=== PATIENT | female | born 1945 | race Caucasian/White ===

== ENCOUNTER 2017-08-15 08:59 | Emergency (ER) | payer OTHER, SELFPAY ==
[~2017-08-15] VITALS: Ht 167.6 cm; Wt 60.0 kg
[2017-08-15] MEDS ORDERED: SODIUM CHLORIDE 0.9% 1,000ML IVBOLUS ONE (10:30)
[2017-08-15] MEDS ORDERED: PROMETHAZINE 25 MG/ML, 1ML IM ONE (10:30)
[2017-08-15] MEDS ORDERED: SODIUM CHLORIDE FLUSH 10ML SYR IVF ONE (10:30)
[2017-08-15] MEDS ORDERED: MORPHINE SULFATE 4 MG/ML, 1ML IVPush PRN (10:30)
[2017-08-15 10:48] LABS: MEAN CORPUSCULAR HEMOGLOBIN 31.7 pg (27.0-34.8); MEAN CORPUSCULAR HGB CONC 33.7 g/dL (32.4-35.8); MEAN CORPUSCULAR VOLUME 94.2 fL (80-100); MEAN PLATELET VOLUME 8.8 fL (7.4-10.4); PLATELET COUNT 368 x10^3/uL (130-400); RED BLOOD COUNT 5.19 x10^6/uL (3.82-5.3)
[2017-08-15] MEDS ORDERED: PROMETHAZINE 25 MG/ML, 1ML ONE (10:49)
[2017-08-15] MEDS ORDERED: MORPHINE SULFATE 4 MG/ML, 1ML ONE (10:50)
[2017-08-15 11:03] LABS: BASOPHILS # (AUTO) 0.03 x10^3/uL (0-0.1); BASOPHILS % (AUTO) 0 % (0-1); EOSINOPHILS # (AUTO) 0.01 x10^3/uL (0-0.4); EOSINOPHILS % (AUTO) 0 % (1-7); LYMPHOCYTES # (AUTO) 1.26 x10^3/uL (1-3.4); LYMPHOCYTES % (AUTO) 8 % (22-44); MD SCAN; MONOCYTES # (AUTO) 0.95 x10^3/uL (0.2-0.8); MONOCYTES % (AUTO) 6 % (2-9); NEUTROPHILS % (AUTO) 86 % (42-75)
[2017-08-15 11:12] LABS: ALANINE AMINOTRANSFERASE 27 U/L (12-78); ALBUMIN 3.2 g/dL (3.4-5.0); ANION GAP 10 mmol/L (5-15); CALCIUM 9.2 mg/dL (8.5-10.1); CHLORIDE 103 mmol/L (98-107); CREATININE 1.12 mg/dL (0.55-1.02)
[2017-08-15 11:14] LABS: ALKALINE PHOSPHATASE 86 U/L (45-117); BILIRUBIN,TOTAL 0.8 mg/dL (0.2-1.0); TOTAL PROTEIN 6.6 g/dL (6.4-8.2)
[2017-08-15] MEDS ORDERED: ONDA4TAB10 PO (11:49)
[2017-08-15] MEDS ORDERED: SERT50TA PO (11:49)
[2017-08-15] MEDS ORDERED: TIZA4TAB9 PO (11:49)
[2017-08-15] MEDS ORDERED: METH-356 PO (11:49)
[2017-08-15] MEDS ORDERED: PARO30TA45 PO (11:49)
[2017-08-15] MEDS ORDERED: OMEP20TA62 PO (11:49)
[2017-08-15] MEDS ORDERED: ACYC400T4 PO (11:49)
[2017-08-15 12:16] VITALS: BP 109/49
== END 2017-08-15 12:18 | disposition home or self-care (01) ==
LOC: ED 11:14
DX: E86.0 Dehydration (principal); F11.23 Opioid dependence with withdrawal; D72.829 Elevated white blood cell count, unspecified; M19.90 Unspecified osteoarthritis, unspecified site; K90.0 Celiac disease; Z88.0 Allergy status to penicillin
CPT/HCPCS: 36415; 74021; 80053; 83690; 85025; 93005; 96361; 96372; 96374; 99285; J2550; J7030